=== PATIENT | female | born 1970 | race Caucasian/White ===

== ENCOUNTER 2018-05-08 16:06 | Emergency (ER) | payer SELFPAY ==
[~2018-05-08] VITALS: Ht 165.1 cm; Wt 77.1 kg
[2018-05-08 17:08] VITALS: BP 129/74
[2018-05-08] MEDS ORDERED: [UNRECOGNIZED DRUG - OTHER] (17:08)
[2018-05-08] MEDS ORDERED: [UNRECOGNIZED DRUG - OTHER] (17:08)
[2018-05-08] MEDS ORDERED: PREDNISONE 20MG TABLET PO ONE (17:45)
[2018-05-08] MEDS ORDERED: GABAPENTIN 300MG CAPSULE PO ONE (17:45)
[2018-05-08] MEDS ORDERED: ACYCLOVIR 400 MG TABLET PO ONE (17:45)
== END 2018-05-08 18:54 | disposition home or self-care (01) ==
LOC: ER 16:06
DX: G51.0 Bell's palsy (principal)
CPT/HCPCS: 99284; J7512